=== PATIENT | female | born 1990 | race Caucasian/White ===

== ENCOUNTER 2023-01-01 11:12 | Outpatient (AMB) | payer OTHER, SELFPAY ==
--- NOTE | 2023-01-01 11:15 | A.OFFVIS_ITS ---
Intake VS Expanded 01/01/23 11:26 BP 131/67 Blood Pressure Location Rt brachial Blood Pressure Position Sitting Pulse 79 Pulse Source Pulse Oximeter Temp 98.5 F Temperature Source Temporal Artery Scan Pulse Oximetry 99 Oxygen Delivery Method Room Air Height 4 ft 11 in Weight 184 lb 3.2 oz BMI 37.2 Body Fat % 40.2 Body Fat Mass 74.0 Fat Free Mass 110.0 Visceral Fat Rating 9.0 Body Water % 42.9 Body Water Mass 79.0 Muscle Mass/Score 104.4 Basal Metabolic Rate/Score 1,545 Intake Visit Reasons: (OV) PO LSG 08/30/2018 ? Hernia Allergies latex [LATEX] Allergy (Severe, Verified 01/01/23 11:20) ITCHING/RASH NSAIDS (Non-Steroidal Anti-Inflamma Allergy (Mild, Verified 01/01/23 11:20) limited use Penicillins Allergy (Mild, Verified 01/01/23 11:20) UTI latex Allergy (Unknown, Uncoded 01/01/23 11:20) Rash HPI HPI Comments History of Present Illness Details The patient is a 32-year-old woman who underwent laparoscopic sleeve gastrectomy on 08/30/[address] Contreras with concomitant laparoscopic cholecystectomy for a BMI of 43.3, and obstructive sleep apnea as well as increasing biliary colic episodes. In reviewing the available EMR, the patient was unfortunately, lost to follow-up and sent several letters regarding follow- up since she failed to make her follow-up appointments. She notes that COVID, it is vaccine and financial matters that caused her to lose her house impacted her ability to work and make follow-up appointments. However, she notes that she is interested in getting on track and has been told by gastroenterologists that she may need to consider revision surgery, so she re-entered the SWL program here at [facility]. The patient presents today at a weight 184.2 lb/BMI 37.2 and notes that she had been lower but regained weight after stressors from COVID, her vaccine reaction and financial problems that ultimately led to losing her house occurred. The patient also reports a past medical history of depression, ADHD, anxiety, back pain. She notes worsening fatigue and has been advised by her PCP in sleep medicine physician to have a repeat sleep study since the last 1 was 4 years ago. She notes minimal compliance with her CPAP due to work obligations. The patient works as a [employer] and frequently works 2 shifts back to back, usually 3rd shift and part of 1st shift. A typical work week for her is 5-7 days. This impacts on her ability to make time for meals and, sometimes, meal skipping is an unfortunate part of her job. At this time, she has no official meal plan but is interested in obtaining information. She is referred by her PCP and no dated 11/03/2022 is reviewed. The patient reports she has been dealing with heartburn that is progressively worsening. She denies any food impactions or hematemesis. There has been no unexplained weight loss. She had upper endoscopy several months ago and believes it was done at [facility] or possibly and a satellite hospital from [facility] and has given permission to obtain those reports so that these procedures do not have to be repeated. ESS 20: pt has f/u with sleep medicine later this year GERD 42 (on Protonix) She wakes at:?930pm?bed at: naps when she can Breakfast:?0200 ham & cheese sandwich? snack: chips Lunch:?muffin or chips? snack: Dinner:?chicken & vegs? snack: After dinner: Other snacks: Liquids: soda, fruit juice Alcohol intake: ??occ? nicotine: ?denied? marijuana:?denied? drugs:?denied? caffeine: coffee w/creamer & sugar PFSH Surgical History S/P gastric sleeve procedure Hx of cholecystectomy Social History Alcohol intake: never Patient Tobacco Use Status: Never used Tobacco Review of Systems Const All systems reviewed & are unremarkable except as noted in HPI and below Physical Exam Vital Signs: Last Vital Signs Temp 98.5 F 01/01/23 11:26 Pulse 79 01/01/23 11:26 BP 131/67 01/01/23 11:26 Pulse Ox 99 01/01/23 11:26 Oxygen Delivery Method Room Air 01/01/23 11:26 BMI result Body Mass Index 37.2 The patient is non-toxic & in good spirits NC/AT, PERRLA, EOMI Mood, affect & judgment all appear appropriate Sclera anicteric conjunctiva pink and moist Oropharynx is clear with no aphthous ulcers, Mallampati class 4, mucous memb ranes moist Neck is supple with no masses, adenopathy or bruits Heart is regular, normal S1-S2 no rubs or murmurs Lungs are clear and equal anteriorly with no audible wheezing, rubs or dullness to percussion Abdomen is obese with no demonstrable hernias. No tenderness is present. No HSM, rebound, rigidity, guarding, masses or bruits are present. Rectal exam is deferred Skin has good turgor and is free of rashes Extremities free of cyanosis clubbing edema Results Reviewed Results Reviewed: Patient has signed requests to obtain records from [facility] and her PCP regarding her recent care including endoscopies, diagnostic imaging such as upper GI source CTs, pathology. Patient is in agreement to go for fasting labs and obtain necessary imaging to help coordinate her care. Assessment & Plan Assessment & Plan (1) S/P gastric sleeve procedure: Code(s): Z90.3 - Acquired absence of stomach [part of] (2) ADD (attention deficit disorder): Code(s): F98.8 - Other specified behavioral and emotional disorders with onset usually occurring in childhood and adolescence (3) GERD (gastroesophageal reflux disease): Code(s): K21.9 - Gastro-esophageal reflux disease without esophagitis (4) MINE (obstructive sleep apnea): Code(s): G47.33 - Obstructive sleep apnea (adult) (pediatric) Plan The patient is interested in obtaining more information regarding diet and exercise since she had a successful sleeve gastrectomy and lost weight. We did discuss that it is imperative she make commitment to prioritize her own health since her current choices are suboptimal and have led to some weight regain which is likely exacerbating her GERD. I also offered to schedule an appointment with her surgeon, Dr. Contreras, but she noted that she was comfortable continuing with me. The importance of meal plan in adherence to the meal plan to minimize snacking and poor dietary choices and augment surgical weight loss was reviewed and apparently understood. The importance of exercise, specifically, a standing program where she is tracking calorie expenditure was discussed and the patient notes that she had previously done this when she had successful weight loss, but is not currently exercising due to work and life stressors. Patient requested educational material and is willing to go for fasting labs and diagnostic imaging to help direct her care. Patient noted that she was advised that she needed a bypass or some other revision operation, but we discussed the likely failure of any revision procedure if she continues to make poor dietary choices that are high in carbohydrate and fat and does not exercise. Patient will try various protein products on the list provided and noted that she is on a fixed income in spite of work. We did discuss celebrate rebuild and she may investigated but wanted the option to look at other products and try them since her finances are limited. I will see the patient back for a 30 minute follow-up in 2 weeks. Our office will obtain records from her PCP and endoscopist as well as any imaging. Patient verbalized understanding that this is not a quick fix without her engagement and her dietary choices and exercise. Her questions seemed to be satisfactorily answered. Option of a 2nd opinion was also offered but declined. Orders: Orders Lipid Panel Today F98.8 - Other specified behavioral and emotional disorders with onset usually occurring in childhood and adolescence, G47.33 - Obstructive sleep apnea (adult) (pediatric), K21.9 - Gastro-esophageal reflux disease withou t esophagitis, Z90.3 - Acquired absence of stomach [part of] Vitamin A Today F98.8 - Other specified behavioral and emotional disorders with onset usually occurring in childhood and adolescence, G47.33 - Obstructive sleep apnea (adult) (pediatric), K21.9 - Gastro-esophageal reflux disease without esophagitis, Z90.3 - Acquired absence of stomach [part of] C Reactive Protein Today F98.8 - Other specified behavioral and emotional disorders with onset usually occurring in childhood and adolescence, G47.33 - Obstructive sleep apnea (adult) (pediatric), K21.9 - Gastro-esophageal reflux disease without esophagitis, Z90.3 - Acquired absence of stomach [part of] Ferritin Today F98.8 - Other specified behavioral and emotional disorders with onset usually occurring in childhood and adolescence, G47.33 - Obstructive sleep apnea (adult) (pediatric), K21.9 - Gastro-esophageal reflux disease without esophagitis, Z90.3 - Acquired absence of stomach [part of] PTHI Today F98.8 - Other specified behavioral and emotional disorders with onset usually occurring in childhood and adolescence, G47.33 - Obstructive sleep apnea (adult) (pediatric), K21.9 - Gastro-esophageal reflux disease without esophagitis, Z90.3 - Acquired absence of stomach [part of] TSH reflex Free T4 Today F98.8 - Other specified behavioral and emotional disorders with onset usually occurring in childhood and adolescence, G47.33 - Obstructive sleep apnea (adult) (pediatric), K21.9 - Gastro-esophageal reflux disease without esophagitis, Z90.3 - Acquired absence of stomach [part of] H Pylori Breath Test Today F98.8 - Other specified behavioral and emotional disorders with onset usually occurring in childhood and adolescence, G47.33 - Obstructive sleep apnea (adult) (pediatric), K21.9 - Gastro-esophageal reflux disease without esophagitis, Z90.3 - Acquired absence of stomach [part of] Vitamin D 25-OH Total Today F98.8 - Other specified behavioral and emotional disorders with onset usually occurring in childhood and adolescence, G47.33 - Obstructive sleep apnea (adult) (pediatric), K21.9 - Gastro-esophageal reflux disease without esophagitis, Z90.3 - Acquired absence of stomach [part of] US abdomen comp w elastography Today F98.8 - Other specified behavioral and emotional disorders with onset usually occurring in childhood and adolescence, G47.33 - Obstructive sleep apnea (adult) (pediatric), K21.9 - Gastro-esophageal reflux disease without esophagitis, Z90.3 - Acquired absence of stomach [part of] ECG 12 lead EKG Today F98.8 - Other specified behavioral and emotional disorders with onset usually occurring in childhood and adolescence, G47.33 - Obstructive sleep apnea (adult) (pediatric), K21.9 - Gastro-esophageal reflux disease without esophagitis, Z90.3 - Acquired absence of stomach [part of] FL upper GI w air Today F98.8 - Other specified behavioral and emotional disorders with onset usually occurring in childhood and adolescence, G47.33 - Obstructive sleep apnea (adult) (pediatric), K21.9 - Gastro-esophageal reflux disease without esophagitis, Z90.3 - Acquired absence of stomach [part of] Insulin Today F98.8 - Other specified behavioral and emotional disorders with onset usually occurring in childhood and adolescence, G47.33 - Obstructive sleep apnea (adult) (pediatric), K21.9 - Gastro-esophageal reflux disease without esophagitis, Z90.3 - Acquired absence of stomach [part of] IRON PROFILE Today F98.8 - Other specified behavioral and emotional disorders with onset usually occurring in childhood and adolescence, G47.33 - Obstructive sleep apnea (adult) (pediatric), K21.9 - Gastro-esophageal reflux disease without esophagitis, Z90.3 - Acquired absence of stomach [part of] Complete Blood Count Auto Diff Today F98.8 - Other specified behavioral and emotional disorders with onset usually occurring in childhood and adolescence, G47.33 - Obstructive sleep apnea (adult) (pediatric), K21.9 - Gastro-esophageal reflux disease without esophagitis, Z90.3 - Acquired absence of stomach [part of] Vitamin B12 and Folate Today F98.8 - Other specified behavioral and emotional disorders with onset usually occurring in childhood and adolescence, G47.33 - Obstructive sleep apnea (adult) (pediatric), K21.9 - Gastro-esophageal reflux disease without esophagitis, Z90.3 - Acquired absence of stomach [part of] Zinc Today F98.8 - Other specified behavioral and emotional disorders with onset usually occurring in childhood and adolescence, G47.33 - Obstructive sleep apnea (adult) (pediatric), K21.9 - Gastro-esophageal reflux disease without esophagitis, Z90.3 - Acquired absence of stomach [part of] Comprehensive Met. Panel Today F98.8 - Other specified behavioral and emotional disorders with onset usually occurring in childhood and adolescence, G47.33 - Obstructive sleep apnea (adult) (pediatric), K21.9 - Gastro-esophageal reflux disease without esophagitis, Z90.3 - Acquired absence of stomach [part of] Vitamin B1 Today F98.8 - Other specified behavioral and emotional disorders with onset usually occurring in childhood and adolescence, G47.33 - Obstructive sleep apnea (adult) (pediatric), K21.9 - Gastro-esophageal reflux disease without esophagitis, Z90.3 - Acquired absence of stomach [part of] Hemoglobin A1c Today F98.8 - Other specified behavioral and emotional disorders with onset usually occurring in childhood and adolescence, G47.33 - Obstructive sleep apnea (adult) (pediatric), K21.9 - Gastro-esophageal reflux disease without esophagitis, Z90.3 - Acquired absence of stomach [part of] XR chest 2V Today F98.8 - Other specified behavioral and emotional disorders with onset usually occurring in childhood and adolescence, G47.33 - Obstructive sleep apnea (adult) (pediatric), K21.9 - Gastro-esophageal reflux disease without esophagitis, Z90.3 - Acquired absence of stomach [part of] Referrals Behavioral Health Referral F98.8 - Other specified behavioral and emotional disorders with onset usually occurring in childhood and adolescence, G47.33 - Obstructive sleep apnea (adult) (pediatric), K21.9 - Gastro-esophageal reflux disease without esophagitis, Z90.3 - Acquired absence of stomach [part of] Nutrition/Dietitian Referral F98.8 - Other specified behavioral and emotional disorders with onset usually occurring in childhood and adolescence, G47.33 - Obstructive sleep apnea (adult) (pediatric), K21.9 - Gastro-esophageal reflux disease without esophagitis, Z90.3 - Acquired absence of stomach [part of] Coding Level of Care Code New Pt Level 4 (49614) Diagnoses S/P gastric sleeve procedure Z90.3 ADD (attention deficit disorder) F98.8 GERD (gastroesophageal reflux disease) K21.9 MINE (obstructive sleep apnea) G47.33
[2023-01-01 11:26] VITALS: BP 131/67; PULSE 79; TEMP 36.9; O2SAT 99; BMI 37.2
== END 2023-01-01 12:39 | disposition home or self-care (01) ==
PROVIDERS: PCP Internal Medicine; Visit Provider Surgery
DX: F98.8 Other specified behavioral and emotional disorders with onset usually occurring in childhood and adolescence (principal); K21.9 Gastro-esophageal reflux disease without esophagitis; G47.33 Obstructive sleep apnea (adult) (pediatric); Z90.3 Acquired absence of stomach [part of]
CPT/HCPCS: 99204

== ENCOUNTER → 2023-01-01 11:12 | Outpatient (BNVA) | payer OTHER, SELFPAY | PROVIDERS: PCP Internal Medicine; Visit Provider Surgery | DX: K21.9 Gastro-esophageal reflux disease without esophagitis (principal); G47.33 Obstructive sleep apnea (adult) (pediatric); F98.8 Other specified behavioral and emotional disorders with onset usually occurring in childhood and adolescence; Z90.3 Acquired absence of stomach [part of] | CPT/HCPCS: 99202 ==

== ENCOUNTER 2023-01-28 13:32 | Outpatient (AMB) | payer OTHER, SELFPAY ==
--- NOTE | 2023-01-28 13:34 | MHC.OFFVISWM ---
Intake VS Expanded 01/28/23 13:39 BP 113/65 Blood Pressure Location Rt brachial Blood Pressure Position Sitting Pulse 80 Pulse Source Pulse Oximeter Temp 97.8 F Temperature Source Tympanic Pulse Oximetry 100 Oxygen Delivery Method Room Air Height 4 ft 11 in Weight 184 lb 6.4 oz BMI 37.2 Body Fat % 41.4 Body Fat Mass 78.0 Fat Free Mass 106.2 Visceral Fat Rating 10.0 Body Water % 41.4 Body Water Mass 76.2 Muscle Mass/Score 101.0 Basal Metabolic Rate/Score 1,507 Intake Visit Reasons: ov swl Allergies latex [LATEX] Allergy (Severe, Verified 01/28/23 13:42) ITCHING/RASH NSAIDS (Non-Steroidal Anti-Inflamma Allergy (Mild, Verified 01/28/23 13:42) limited use Penicillins Allergy (Mild, Verified 01/28/23 13:42) UTI latex Allergy (Unknown, Uncoded 01/28/23 13:42) Rash Medication List - Last Reconciled 01/28/23 by NI Nunes albuterol sulfate 90 mcg/actuation (Ventolin HFA) inhalation dextroamphetamine-amphetamine 20 mg 1 tab PO BID escitalopram oxalate 5 mg PO DAILY fluticasone propionate 110 mcg/actuation (Flovent HFA) 2 puffs inhalation BID lorazepam 0.5 mg PO BID PRN HPI HPI Comments History of Present Illness Details Pt is s/p LSG [address] Leblanc Seen in followup by Dr. Wolfe last month. Known HH, continues to have reflux symptoms. Since last visit, weight has remained the same. Likes Ensure shakes, ZP bars. Wants to exercise at home, will try to fit the gym in when she can. PFSH Surgical History S/P gastric sleeve procedure Hx of cholecystectomy Social History Alcohol intake: never Patient Tobacco Use Status: Never used Tobacco Assessment & Plan Assessment & Plan (1) S/P gastric sleeve procedure: Code(s): Z90.3 - Acquired absence of stomach [part of] (2) GERD (gastroesophageal reflux disease): Code(s): K21.9 - Gastro-esophageal reflux disease without esophagitis Plan New meal plan based on pt preferences: 11pm-1am Ensure shake, half bottle in 2-3oz unsweetened almond milk or water 3-5am ZP bar 8-10am rest of Ensure shake in 2-3oz UAM or water 1-3pm bar 5:30pm dinner- 4 forks protein, 4 forks veg/salad Discussed goal of 2000 fatou burned/week, gave home video handout. Pt will go today for labs, CXR, EKG, will schedule AUS and try to obtain records from [facility]. H pylori- pt will try to remain off PPI for 2 weeks, if not possible will plan for endoscopy. RTC 1 month. Meal plan texted to pt and encouraged her to reach out with any questions or difficulty with meal plan. Patient is obese and is not considered stable at this time. I spent a total of 30 minutes reviewing/updating records, examining the patient and counseling the patient on weight management as detailed above. Coding Level of Care Code Est Pt Level 4 (36125) Diagnoses S/P gastric sleeve procedure Z90.3 GERD (gastroesophageal reflux disease) K21.9
[2023-01-28 13:39] VITALS: BP 113/65; PULSE 80; TEMP 36.6; O2SAT 100; BMI 37.2
== END 2023-01-28 14:18 | disposition home or self-care (01) ==
PROVIDERS: PCP Internal Medicine; Visit Provider Physician Assistant Surgical
DX: K21.9 Gastro-esophageal reflux disease without esophagitis (principal); Z90.3 Acquired absence of stomach [part of]
CPT/HCPCS: 99214

== ENCOUNTER 2023-01-28 13:32 | Outpatient (REF) | payer OTHER, SELFPAY ==
--- NOTE | ~2023-01-28 | XR_ITS ---
EXAMINATION: XR CHEST CLINICAL INFORMATION: Acquired absence of stomach (part of). COMPARISON: 09/05/2018 TECHNIQUE: 2 views of the chest were obtained. FINDINGS: There is no gross pneumothorax. Heart size is normal. Multiple surgical clips in the upper abdomen. No pleural effusion. No focal consolidation to suggest pneumonia. XR/XR chest 2V IMPRESSION: No evidence of pneumonia.
--- NOTE | 2023-01-28 14:23 | ECG_ITS ---
Test Reason : ACQUIRED ABSENSE PART OF STOMACH Blood Pressure : / mmHG Vent. Rate : 071 BPM Atrial Rate : 071 BPM P-R Int : 154 ms QRS Dur : 102 ms QT Int : 402 ms P-R-T Axes : 056 035 037 degrees QTc Int : 436 ms Normal sinus rhythm with sinus arrhythmia Normal ECG When compared with ECG of 10-JUN-2018 10:07, No significant change was found Referred By: Gorge Wolfe Electronically Signed By:Ke Medellin
[2023-01-28 14:33] LABS: MANUAL DIFF FLAG NO
[2023-01-28 14:47] LABS: Basophils Absolute Auto 0.1 X10*3/uL (0.0-0.2); Basophils Percent Auto 0.8 % (0-2); Eosinophils Absolute Auto 0.1 X10*3/uL (0.0-0.4); Eosinophils Percent Auto 0.8 % (0-4); Hematocrit 38.3 % (37.0-47.0); Hemoglobin 12.9 g/dl (12.0-16.0); Imm Gran Abs Auto 0.03 X10*3/uL (0.00-0.03); Imm Gran Pct Auto 0.3 % (0.0-0.4); Lymphocytes Absolute Auto 3.3 X10*3/uL (1.2-4.9); Lymphocytes Percent Auto 36.8 % (20-40); Mean Corpuscular HGB Conc 33.7 g/dl (31.0-35.0); Mean Corpuscular Volume 89.1 fL (80.0-98.0); Monocytes Absolute Auto 0.7 X10*3/uL (0.1-1.2); Neutrophils Absolute Auto 4.7 x10*3/uL (2.0-8.3); Neutrophils Percent Auto 53.3 % (45-73); Platelet Count 252 X10*3/uL (160-400); White Blood Count 8.9 X10*3/uL (4.8-10.8)
[2023-01-28 14:53] LABS: Estimated Average Glucose 105 mg/dL; Hemoglobin A1c % 5.3 % (<6.0)
[2023-01-28 15:24] LABS: Alanine Aminotransferase 18 U/L (0-31); Albumin Level 4.3 g/dL (3.5-5.0); Alkaline Phosphatase 55 U/L (39-117); Anion Gap 11 (12-20); Aspartate Amino Transferase 16 U/L (5-31); Bilirubin Total 0.6 mg/dL (0.0-1.0); Blood Urea Nitrogen 20 mg/dL (9-16); C Reactive Protein 0.11 mg/dL (< or = 0.50); Calcium 9.4 mg/dL (8.4-10.2); Carbon Dioxide 27 mmol/L (22-29); Chloride 104 mmol/L (96-108); Cholesterol 181 mg/dL (<200); Estimated Glomerular Filt Rate > 60; Glucose Random 86 mg/dL (60-115); HDL Cholesterol 39 mg/dL (>40); Iron 50 mcg/dL (30-160); LDL Cholesterol Calculated 133 mg/dL (<100); Percent Iron Saturation 18 % (15-50); Potassium 3.9 mmol/L (3.3-5.1); Sodium 138 mmol/L (135-145); Total Iron Binding Capacity 284 mcg/dL (228-428); Total Protein 7.6 g/dL (6.5-8.0); Triglycerides 46 mg/dL (<150); Unsaturated Iron Binding 234 ug/dL
[2023-01-28 15:41] LABS: Ferritin 52 ng/mL (10-122); Insulin 3 uU/mL (2-29); TSH reflex Free T4 1.76 uIU/mL (0.32-4.0); Vitamin D 25-OH Total 35.1 ng/mL (>30)
[2023-01-28 15:53] LABS: Folate 11.9 ng/mL (> or = 4.0); Vitamin B12 537 pg/mL (200-900)
[2023-01-31 17:18] LABS: Zinc 90 mcg/dL (60-130)
[2023-02-02 03:38] LABS: Vitamin A 51 mcg/dL (38-98)
[2023-02-02 15:52] LABS: Vitamin B1 19 nmol/L (8-30)
== END 2023-01-28 13:33 | disposition home or self-care (01) ==
LOC: HO.XRAY 13:32
PROVIDERS: Surgery; PCP Internal Medicine; Visit Provider Physician Assistant Surgical
DX: K21.9 Gastro-esophageal reflux disease without esophagitis (principal); G47.33 Obstructive sleep apnea (adult) (pediatric); F98.8 Other specified behavioral and emotional disorders with onset usually occurring in childhood and adolescence; Z90.3 Acquired absence of stomach [part of]
CPT/HCPCS: 36415; 71046; 80053; 80061; 82306; 82607; 82728; 82746; 83036; 83525; 83540; 84425; 84443; 84590; 84630; 85025; 86140; 93005; 99212

== ENCOUNTER → 2023-01-28 14:23 | Outpatient (BNV) | payer OTHER, SELFPAY | PROVIDERS: PCP Internal Medicine; Visit Provider Internal Medicine Cardiovascular Disease | DX: Z01.818 Encounter for other preprocedural examination (principal); Z90.3 Acquired absence of stomach [part of] | CPT/HCPCS: 93010 ==